=== PATIENT | female | born 1930 | race Caucasian/White ===

== ENCOUNTER 2019-07-26 14:30 | Emergency (ER) | payer MEDICARE ==
--- NOTE | 2019-07-26 15:12 | RAD ---
AP view of the pelvis INDICATION: Fall COMPARISON: None. FINDINGS: Bones: There is diffuse osteopenia. No acute fracture or subluxation demonstrated. 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 SI joints and symphysis pubis: There is mild degenerative change of both SI joints. Intrapelvic contents: There are moderate vascular calcifications seen involving the visualized vascul ature. IMPRESSION: No acute osseous abnormality.
--- NOTE | 2019-07-26 15:15 | RAD ---
Left hip 2 views INDICATION: Fall with left hip pain COMPARISON: None FINDINGS: Bones: There is diffuse osteopenia. No acute fracture or subluxation demonstrated. Hip joint: There is mild degenerative change of the left hip. SI joints and symphysis pubis: Radiographically normal. Intrapelvic contents: There are moderate vascular calcifications seen involving the visualized vascul ature. Surrounding soft tissues: Radiographically normal. IMPRESSION: 1. No acute osseous abnormality.
== END 2019-07-26 15:50 | disposition home or self-care (01) ==
LOC: NAV ERS 14:30
DX: S60.417A Abrasion of left little finger, initial encounter (principal); S60.811A Abrasion of right wrist, initial encounter; S60.511A Abrasion of right hand, initial encounter; M25.551 Pain in right hip; F41.9 Anxiety disorder, unspecified; W18.30XA Fall on same level, unspecified, initial encounter
CPT/HCPCS: 72170